=== PATIENT | male | born 1970 | race American Indian/Alaskan Native ===

== ENCOUNTER 2020-11-02 04:41 | Inpatient (IN) | payer MEDICARE ==
[2020-11-02] MEDS ORDERED: ONDANSETRON 4 MG/2 ML INJ IV ONE (05:17)
[2020-11-02] MEDS ORDERED: INSULIN REGULAR, HUMAN 100 UNITS/1 ML IV ONE (05:17)
[2020-11-02] MEDS ORDERED: SODIUM CHLORIDE 0.9% 1000 ML 1,000 ML IV ONE ×2 (05:17→06:24)
[2020-11-02 05:48] LABS: Mean Corpuscular HGB Conc 30 % (32-34); Mean Corpuscular Volume 99 fl (84-94); Platelet Count 225 K/mm3 (140-440); Red Blood Count 4.73 M/mm3 (3.65-5.03); Red Cell Distribution Width 16.1 % (13.2-15.2)
[2020-11-02 05:50] LABS: Basophils % (Auto) 0.3 % (0.0-1.8); Hematocrit 46.7 % (35.5-45.6); Lymphocytes # (Auto) 0.6 K/mm3 (1.2-5.4); Monocytes # (Auto) 0.5 K/mm3 (0.0-0.8); Monocytes % (Auto) 3.9 % (0.0-7.3)
[2020-11-02 06:11] LABS: Bilirubin,Direct 0.2 mg/dL (0-0.2); Calcium 9.3 mg/dL (8.4-10.2)
[2020-11-02] MEDS ORDERED: DEXTROSE 50% IN WATER (25GM) 50 ML SYRINGE IV PRN (06:24)
[2020-11-02] MEDS ORDERED: INSULIN REGULAR, HUMAN 100 UNITS in SODIUM CHLORIDE 0.9% 99 ML IV SCH (07:00)
[2020-11-02 07:26] LABS: INR 1.21 (0.87-1.13); Partial Thromboplastin Time 24.3 Sec. (24.2-36.6)
--- NOTE | 2020-11-02 07:27 | Emergency Department Report ---
ED General Adult HPI - General Chief complaint: Hyperglycemia Stated complaint: HIGH BLOOD SUGAR Time Seen by Provider: 11/02/20 05:17 Source: patient, EMS Mode of arrival: Stretcher Limitations: No Limitations - History of Present Illness Initial comments: This is a 50-year-old type I diabetic who is giving limited history at this time. He is obviously in DKA and probably to some degree encephalopathic. He has Kussmaul respirations. He is able to tell me his name and the year. He seems to be saying that he has not had any insulin at least since Tuesday. He states he is from [place]. I do not know if he was registered correctly. However, he seems to be indicating that he has been to this hospital before and I do not find previous medical records. He also seems to be stating that he is not homeless and lives with family. Other circumstances of his illness/condition are difficult to ascertain at this point. -: Gradual, days(s) Severity scale (0 -10): 0 Quality: other (Not actively complaining of pain at the time of my encounter) Associated Symptoms: other (Unknown) Treatments Prior to Arrival: none - Related Data Home Medications Medication Instructions Recorded Confirmed Last Taken Gabapentin [Neurontin] 400 mg PO Q8HR 11/02/20 11/02/20 Unknown Insulin Glargine [Lantus VIAL] 0 unit SQ ACHS 11/02/20 11/02/20 Unknown Metformin HCl [Metformin HCl ER] 500 mg PO QDAY 11/02/20 11/02/20 Unknown Pioglitazone HCl [Actos] 45 mg PO QDAY 11/02/20 11/02/20 Unknown traMADoL [Ultram] 50 mg PO Q6HR PRN 11/02/20 11/02/20 Unknown Allergies Allergy/AdvReac Type Severity Reaction Status Date / Time No Known Allergies Allergy Unverified 11/02/20 04:57 ED Review of Systems ROS: Stated complaint: HIGH BLOOD SUGAR Other details as noted in HPI Comment: Unobtainable due to pts medical conditions ED Past Medical Hx - Past Medical History Previous Medical History?: Yes Hx Diabetes: Yes - Surgical History Past Surgical History?: Yes Additional Surgical History: FOOT SURGERY - Social History Smoking Status: Current Every Day Smoker Substance Use Type: None - Medications Home Medications: Home Medications Medication Instructions Recorded Confirmed Last Taken Type Gabapentin [Neurontin] 400 mg PO Q8HR 11/02/20 11/02/20 Unknown History Insulin Glargine [Lantus VIAL] 0 unit SQ ACHS 11/02/20 11/02/20 Unknown History Metformin HCl [Metformin HCl ER] 500 mg PO QDAY 11/02/20 11/02/20 Unknown History Pioglitazone HCl [Actos] 45 mg PO QDAY 11/02/20 11/02/20 Unknown History traMADoL [Ultram] 50 mg PO Q6HR PRN 11/02/20 11/02/20 Unknown History ED Physical Exam - General Limitations: No Limitations General appearance: lethargic, other (Kussmaul respirations) - Head Head exam: Present: atraumatic, normocephalic - Eye Eye exam: Present: normal appearance. Absent: scleral icterus - ENT ENT exam: Present: mucous membranes dry - Neck Neck exam: Present: normal inspection. Absent: tenderness, meningismus - Respiratory Respiratory exam: Present: normal lung sounds bilaterally. Absent: respiratory distress - Cardiovascular Cardiovascular Exam: Present: tachycardia. Absent: systolic murmur, diastolic murmur, rubs, gallop - GI/Abdominal GI/Abdominal exam: Present: soft, normal bowel sounds. Absent: distended, te nderness, guarding, rebound, rigid - Rectal Rectal exam: Present: deferred - Extremities Exam Extremities exam: Present: normal inspection - Back Exam Back exam: Present: normal inspection - Neurological Exam Neurological exam: Present: altered - Psychiatric Psychiatric exam: Present: normal mood, flat affect - Skin Skin exam: Present: warm, dry, intact, normal color. Absent: rash ED Course Vital Signs 11/02/20 11/02/20 11/02/20 04:50 06:16 06:27 Temperature 97.5 F L Pulse Rate 120 H Respiratory 18 33 H Rate Blood Pressure Blood Pressure 100/60 [Left] O2 Sat by Pulse 100 83 L 100 Oximetry 11/02/20 11/02/20 11/02/20 06:31 06:33 07:15 Temperature Pulse Rate 111 H 113 H 111 H Respiratory 22 33 H 19 Rate Blood Pressure 107/67 124/54 Blood Pressure 107/67 [Left] O2 Sat by Pulse 100 100 Oximetry 11/02/20 11/02/20 11/02/20 07:30 07:45 08:01 Temperature Pulse Rate 115 H 110 H 109 H Respiratory 23 18 22 Rate Blood Pressure 128/58 107/68 107/68 Blood Pressure [Left] O2 Sat by Pulse 100 100 100 Oximetry 11/02/20 11/02/20 11/02/20 08:15 08:31 09:01 Temperature Pulse Rate 102 H 115 H 109 H Respiratory 15 21 15 Rate Blood Pressure 124/73 107/67 123/75 Blood Pressure [Left] O2 Sat by Pulse 100 100 Oximetry - Reevaluation(s) Reevaluation #1: IV fluids, insulin drip, admit to ICU. 11/02/20 08:18 Reevaluation #2: Empiric antibiotics for possible sepsis are ordered. The patient has been seen by Dr. Sullivan in the emergency department and has been admitted to the intensive care unit. 11/02/20 08:22 Reevaluation #3: EKG and chest x-ray are yet pending. Nurse informed. 11/02/20 08:23 Reevaluation #4: Patient has been entered as a new patient with no prior electronic medical records. I am having them check to find out if this is accurate. He has a creatinine of 3.8. I do not know his baseline. We will obtain a nephrology consult. 11/02/20 08:24 Reevaluation #5: Discussed with Dr. Ma. He will be seeing the patient in the emergency department I presume. 11/02/20 08:38 11/02/20 09:16 Improving anion gap noted. Patient already admitted by hospitalist to the ICU. ED Medical Decision Making - Lab Data Result diagrams: 11/02/20 05:21 11/02/20 08:27 Laboratory Results - last 24 hr 11/02/20 11/02/20 11/02/20 05:21 05:21 05:21 WBC 12.9 H RBC 4.73 Hgb 14.0 Hct 46.7 H MCV 99 H MCH 30 MCHC 30 L RDW 16.1 H Plt Count 225 Lymph % (Auto) 5.0 L [place] % (Auto) 3.9 Eos % (Auto) 0.0 Baso % (Auto) 0.3 Lymph # (Auto) 0.6 L [place] # (Auto) 0.5 Eos # (Auto) 0.0 Baso # (Auto) 0.0 Seg Neutrophils % Invasive Cardiologist Seg Neutrophils # 11.7 H PT INR APTT VBG pH 7.140 L* Sodium 137 Potassium 6.1 H* Chloride 78.1 L Carbon Dioxide 5 L* Anion Gap 60 BUN 74 H Creatinine 3.8 H Estimated GFR 17 BUN/Creatinine Ratio 19 Glucose 991 H* Lactic Acid Calcium 9.3 Total Bilirubin 0.40 Direct Bilirubin 0.2 Indirect Bilirubin 0.2 AST 10 ALT 13 Alkaline Phosphatase 139 H Total Protein 7.3 Albumin 4.0 Albumin/Globulin Ratio 1.2 11/02/20 11/02/20 06:50 06:50 WBC RBC Hgb Hct MCV MCH MCHC RDW Plt Count Lymph % (Auto) [place] % (Auto) Eos % (Auto) Baso % (Auto) Lymph # (Auto) [place] # (Auto) Eos # (Auto) Baso # (Auto) Seg Neutrophils % Seg Neutrophils # PT 15.1 H INR 1.21 H APTT 24.3 VBG pH Sodium Potassium Chloride Carbon Dioxide Anion Gap BUN Creatinine Estimated GFR BUN/Creatinine Ratio Glucose Lactic Acid 3.30 H* Calcium Total Bilirubin Direct Bilirubin Indirect Bilirubin AST ALT Alkaline Phosphatase Total Protein Albumin Albumin/Globulin Ratio Laboratory Results - last 24 hr 11/02/20 11/02/20 11/02/20 05:21 05:21 05:21 WBC 12.9 H RBC 4.73 Hgb 14.0 Hct 46.7 H MCV 99 H MCH 30 MCHC 30 L RDW 16.1 H Plt Count 225 Lymph % (Auto) 5.0 L [place] % (Auto) 3.9 Eos % (Auto) 0.0 Baso % (Auto) 0.3 Lymph # (Auto) 0.6 L [place] # (Auto) 0.5 Eos # (Auto) 0.0 Baso # (Auto) 0.0 Seg Neutrophils % Invasive Cardiologist Seg Neutrophils # 11.7 H PT INR APTT VBG pH 7.140 L* Sodium 137 Potassium 6.1 H* Chloride 78.1 L Carbon Dioxide 5 L* Anion Gap 60 BUN 74 H Creatinine 3.8 H Estimated GFR 17 BUN/Creatinine Ratio 19 Glucose 991 H* Lactic Acid Calcium 9.3 Phosphorus Magnesium Total Bilirubin 0.40 Direct Bilirubin 0.2 Indirect Bilirubin 0.2 AST 10 ALT 13 Alkaline Phosphatase 139 H Total Creatine Kinase CK-MB (CK-2) CK-MB (CK-2) Rel Index Troponin T NT-Pro-B Natriuret Pep Total Protein 7.3 Albumin 4.0 Albumin/Globulin Ratio 1.2 11/02/20 11/02/20 11/02/20 06:50 06:50 06:50 WBC RBC Hgb Hct MCV MCH MCHC RDW Plt Count Lymph % (Auto) [place] % (Auto) Eos % (Auto) Baso % (Auto) Lymph # (Auto) [place] # (Auto) Eos # (Auto) Baso # (Auto) Seg Neutrophils % Seg Neutrophils # PT 15.1 H INR 1.21 H APTT 24.3 VBG pH Sodium 140 Potassium 4.4 D Chloride 86.5 L Carbon Dioxide 4 L* Anion Gap 54 BUN 74 H Creatinine 3.8 H Estimated GFR 17 BUN/Creatinine Ratio 19 Glucose 884 H* Lactic Acid Calcium 8.1 L Phosphorus 11.40 H Magnesium 3.30 H Total Bilirubin Direct Bilirubin Indirect Bilirubin AST ALT Alkaline Phosphatase Total Creatine Kinase CK-MB (CK-2) CK-MB (CK-2) Rel Index Troponin T NT-Pro-B Natriuret Pep Total Protein Albumin Albumin/Globulin Ratio 11/02/20 11/02/20 06:50 06:50 WBC RBC Hgb Hct MCV MCH MCHC RDW Plt Count Lymph % (Auto) [place] % (Auto) Eos % (Auto) Baso % (Auto) Lymph # (Auto) [place] # (Auto) Eos # (Auto) Baso # (Auto) Seg Neutrophils % Seg Neutrophils # PT INR APTT VBG pH Sodium Potassium Chloride Carbon Dioxide Anion Gap BUN Creatinine Estimated GFR BUN/Creatinine Ratio Glucose Lactic Acid 3.30 H* Calcium Phosphorus Magnesium 3.30 H Total Bilirubin Direct Bilirubin Indirect Bilirubin AST ALT Alkaline Phosphatase Total Creatine Kinase 104 CK-MB (CK-2) 2.8 CK-MB (CK-2) Rel Index 2.6 Troponin T 0.013 NT-Pro-B Natriuret Pep 116.9 Total Protein Albumin Albumin/Globulin Ratio Laboratory Results - last 24 hr 11/02/20 11/02/20 11/02/20 05:21 05:21 05:21 WBC 12.9 H RBC 4.73 Hgb 14.0 Hct 46.7 H MCV 99 H MCH 30 MCHC 30 L RDW 16.1 H Plt Count 225 Lymph % (Auto) 5.0 L [place] % (Auto) 3.9 Eos % (Auto) 0.0 Baso % (Auto) 0.3 Lymph # (Auto) 0.6 L [place] # (Auto) 0.5 Eos # (Auto) 0.0 Baso # (Auto) 0.0 Seg Neutrophils % Invasive Cardiologist Seg Neutrophils # 11.7 H PT INR APTT VBG pH 7.140 L* Sodium 137 Potassium 6.1 H* Chloride 78.1 L Carbon Dioxide 5 L* Anion Gap 60 BUN 74 H Creatinine 3.8 H Estimated GFR 17 BUN/Creatinine Ratio 19 Glucose 991 H* Lactic Acid Calcium 9.3 Phosphorus Magnesium Total Bilirubin 0.40 Direct Bilirubin 0.2 Indirect Bilirubin 0.2 AST 10 ALT 13 Alkaline Phosphatase 139 H Total Creatine Kinase CK-MB (CK-2) CK-MB (CK-2) Rel Index Troponin T NT-Pro-B Natriuret Pep Total Protein 7.3 Albumin 4.0 Albumin/Globulin Ratio 1.2 11/02/20 11/02/20 11/02/20 06:50 06:50 06:50 WBC RBC Hgb Hct MCV MCH MCHC RDW Plt Count Lymph % (Auto) [place] % (Auto) Eos % (Auto) Baso % (Auto) Lymph # (Auto) [place] # (Auto) Eos # (Auto) Baso # (Auto) Seg Neutrophils % Seg Neutrophils # PT 15.1 H INR 1.21 H APTT 24.3 VBG pH Sodium 140 Potassium 4.4 D Chloride 86.5 L Carbon Dioxide 4 L* Anion Gap 54 BUN 74 H Creatinine 3.8 H Estimated GFR 17 BUN/Creatinine Ratio 19 Glucose 884 H* Lactic Acid Calcium 8.1 L Phosphorus 11.40 H Magnesium 3.30 H Total Bilirubin Direct Bilirubin Indirect Bilirubin AST ALT Alkaline Phosphatase Total Creatine Kinase CK-MB (CK-2) CK-MB (CK-2) Rel Index Troponin T NT-Pro-B Natriuret Pep Total Protein Albumin Albumin/Globulin Ratio 11/02/20 11/02/20 11/02/20 06:50 06:50 08:27 WBC RBC Hgb Hct MCV MCH MCHC RDW Plt Count Lymph % (Auto) [place] % (Auto) Eos % (Auto) Baso % (Auto) Lymph # (Auto) [place] # (Auto) Eos # (Auto) Baso # (Auto) Seg Neutrophils % Seg Neutrophils # PT INR APTT VBG pH Sodium 140 Potassium 4.5 Chloride 89.4 L Carbon Dioxide 7 L* Anion Gap 48 BUN 75 H Creatinine 3.7 H Estimated GFR 21 BUN/Creatinine Ratio 20 Glucose 789 H* Lactic Acid 3.30 H* Calcium 7.9 L Phosphorus Magnesium 3.30 H Total Bilirubin Direct Bilirubin Indirect Bilirubin AST ALT Alkaline Phosphatase Total Creatine Kinase 104 CK-MB (CK-2) 2.8 CK-MB (CK-2) Rel Index 2.6 Troponin T 0.013 NT-Pro-B Natriuret Pep 116.9 Total Protein Albumin Albumin/Globulin Ratio 11/02/20 08:27 WBC RBC Hgb Hct MCV MCH MCHC RDW Plt Count Lymph % (Auto) [place] % (Auto) Eos % (Auto) Baso % (Auto) Lymph # (Auto) [place] # (Auto) Eos # (Auto) Baso # (Auto) Seg Neutrophils % Seg Neutrophils # PT INR APTT VBG pH Sodium Potassium Chloride Carbon Dioxide Anion Gap BUN Creatinine Estimated GFR BUN/Creatinine Ratio Glucose Lactic Acid 1.70 Calcium Phosphorus Magnesium Total Bilirubin Direct Bilirubin Indirect Bilirubin AST ALT Alkaline Phosphatase Total Creatine Kinase CK-MB (CK-2) CK-MB (CK-2) Rel Index Troponin T NT-Pro-B Natriuret Pep Total Protein Albumin Albumin/Globulin Ratio - EKG Data -: EKG Interpreted by Al EKG shows normal: sinus rhythm, axis, intervals, QRS complexes, ST-T waves Rate: tachycardia - EKG Data Interpretation: nonspecific ST-T wave alfa Critical Care Time: Yes Critical care time in (mins) excluding proc time.: 90 Critical care attestation.: If time is entered above; I have spent that time in minutes in the direct care of this critically ill patient, excluding procedure time. ED Disposition Clinical Impression: Metabolic encephalopathy, Lactic acidosis, Acute renal injury, Hyperphosphatemia DKA, type 1 Qualifiers: Diabetes mellitus complication detail: with coma Qualified Code(s): E10.11 - Type 1 diabetes mellitus with ketoacidosis with coma Chronic renal insufficiency Qualifiers: Chronic kidney disease stage: unspecified stage Qualified Code(s): N18.9 - Chronic kidney disease, unspecified Disposition: OP ADMIT IP TO THIS HOSP Is pt being admited?: Yes Does the pt Need Aspirin: Yes Condition: Stable Instructions: Diabetes Mellitus Type 2 in Adults (ED) Referrals: PRIMARY CARE, [Primary Care Provider] - 3-5 Days Time of Disposition: 09:17
[2020-11-02 07:31] LABS: Calcium 8.1 mg/dL (8.4-10.2)
[2020-11-02 07:33] LABS: Creatine Kinase MB 2.8 ng/mL (0.0-4.0)
[2020-11-02] MEDS ORDERED: CEFEPIME/NS 1 GM/100 ML 1 GM/100 ML BAG IV ONE (08:21)
[2020-11-02 08:58] LABS: Calcium 7.9 mg/dL (8.4-10.2)
[2020-11-02] MEDS ORDERED: VANCOMYCIN PHARMACY TO DOSE IV SCH (09:00)
--- NOTE | 2020-11-02 09:10 | XRay Report ---
CHEST 1 VIEW 11/02/2020 8:03 AM INDICATION / CLINICAL INFORMATION: hypertension. COMPARISON: None available. FINDINGS: SUPPORT DEVICES: None. HEART / MEDIASTINUM: No significant abnormality. LUNGS / PLEURA: There are generalized bilateral interstitial opacities, most notable along the left l tonya base. No dense area of consolidation. No significant pleural effusion. No pneumothorax. ADDITIONAL FINDINGS: No significant additional findings. IMPRESSION: Nonspecific bilateral interstitial opacities could represent edema or other chronic interstitial lung disease. Please correlate with the clinical findings. Signer Name: Homar Tello MD Signed: 11/02/2020 9:06 AM Workstation Name: [id number]
[2020-11-02] MEDS ORDERED: ASPIRIN 81 MG TAB CHEW PO ONE (09:17)
[2020-11-02] MEDS ORDERED: VANCOMYCIN 1,500 MG in SODIUM CHLORIDE 0.9% 500 ML 500 ML IV ONE (09:30)
--- NOTE | 2020-11-02 10:45 | History and Physical Report ---
History of Present Illness Date of examination: 11/02/20 Date of admission: 11/02/20 Chief complaint: AMS, n/v History of present illness: This is a 50-year-old type I diabetic who is giving limited history at this time. He is obviously in DKA and probably to some degree encephalopathic. He has Kussmaul respirations. He is able to tell me his name and the year. He seems to be saying that he has not had any insulin at least since Tuesday. He states he is from [place]. I do not know if he was registered correctly. However, he seems to be indicating that he has been to this hospital before and I do not find previous medical records. He also seems to be stating that he is not homeless and lives with family. Other circumstances of his illness/conditio n are difficult to ascertain at this point. Past Medical Hx - Past Medical History Previous Medical History?: Yes Hx Diabetes: Yes - Surgical History Past Surgical History?: Yes Additional Surgical History: FOOT SURGERY - Social History Smoking Status: Current Every Day Smoker Substance Use Type: None - Family History Significant for hypertension and diabetes Review of System: Unable to obtain as patient with altered mental status Medications and Allergies Allergies Allergy/AdvReac Type Severity Reaction Status Date / Time No Known Allergies Allergy Unverified 11/02/20 04:57 Home Medications Medication Instructions Recorded Confirmed Last Taken Type Gabapentin 400 mg PO Q8HR 11/02/20 11/02/20 Unknown History Metformin HCl [Metformin HCl ER] 500 mg PO QDAY 11/02/20 11/02/20 Unknown History Pioglitazone HCl [Actos] 45 mg PO QDAY 11/02/20 11/02/20 Unknown History Insulin Glargine [Lantus VIAL] 15 units SUB-Q QHS 30 Days 11/04/20 Unknown Rx Insulin Regular, Human [HumuLIN R] 0 units SUB-Q ACHS 30 Days units 11/04/20 U nknown Rx levoFLOXacin [Levaquin] 750 mg PO QDAY #4 tablet 11/04/20 Unknown Rx Active Meds: Active Medications Dextrose (Dextrose 50% In Water (25gm) 50 Ml Syringe) 0 ml IV Q30MIN PRN; Protocol PRN Reason: Hypoglycemia Insulin Human Regular 100 (units/ Sodium Chloride) 100 mls @ 1 mls/hr IV TITR ALEXANDRA; Protocol Last Titration: 11/02/20 10:20 Dose: 8 units/hr, 8 mls/hr Documented by: Vancomycin HCl 1,500 mg/ (Sodium Chloride) 530 mls @ 333.333 mls/hr IV ONCE ONE Stop: 11/02/20 11:05 Last Admin: 11/02/20 10:24 Dose: 333.333 mls/hr Documented by: Exam - Constitutional Vitals: Temp Pulse Resp BP Pulse Ox 97.5 F L 109 H 15 123/75 100 11/02/20 04:50 11/02/20 09:01 11/02/20 09:01 11/02/20 09:01 11/02/20 09:01 HEART Score - HEART Score Troponin: Troponin T 0.013 ng/mL (0.00-0.029) 11/02/20 06:50 Results - Labs CBC & Chem 7: 11/03/20 10:04 11/04/20 05:35 Labs: Abnormal lab results 11/02/20 11/02/20 11/02/20 Range/Units 05:11 05:21 05:21 WBC 12.9 H (4.5-11.0) K/mm3 Hct 46.7 H (35.5-45.6) % MCV 99 H (84-94) fl MCHC 30 L (32-34) % RDW 16.1 H (13.2-15.2) % Lymph % (Auto) 5.0 L (13.4-35.0) % Lymph # (Auto) 0.6 L (1.2-5.4) K/mm3 Seg Neutrophils # 11.7 H (1.8-7.7) K/mm3 PT (12.2-14.9) Sec. INR (0.87-1.13) VBG pH (7.320-7.420) Potassium 6.1 H* (3.6-5.0) mmol/L Chloride 78.1 L (98-107) mmol/L Carbon Dioxide 5 L* (22-30) mmol/L BUN 74 H (9-20) mg/dL Creatinine 3.8 H (0.8-1.3) mg/dL Glucose 991 H* (75-100) mg/dL POC Glucose > 600 H (70-105) mg/dL Lactic Acid (0.7-2.0) mmol/L Calcium (8.4-10.2) mg/dL Phosphorus (2.5-4.5) mg/dL Magnesium (1.7-2.3) mg/dL Alkaline Phosphatase 139 H (35-129) units/L 11/02/20 11/02/20 11/02/20 Range/Units 05:21 06:50 06:50 WBC (4.5-11.0) K/mm3 Hct (35.5-45.6) % MCV (84-94) fl MCHC (32-34) % RDW (13.2-15.2) % Lymph % (Auto) (13.4-35.0) % Lymph # (Auto) (1.2-5.4) K/mm3 Seg Neutrophils # (1.8-7.7) K/mm3 PT (12.2-14.9) Sec. INR (0.87-1.13) VBG pH 7.140 L* (7.320-7.420) Potassium (3.6-5.0) mmol/L Chloride 86.5 L (98-107) mmol/L Carbon Dioxide 4 L* (22-30) mmol/L BUN 74 H (9-20) mg/dL Creatinine 3.8 H (0.8-1.3) mg/dL Glucose 884 H* (75-100) mg/dL POC Glucose (70-105) mg/dL Lactic Acid (0.7-2.0) mmol/L Calcium 8.1 L (8.4-10.2) mg/dL Phosphorus 11.40 H (2.5-4.5) mg/dL Magnesium 3.30 H (1.7-2.3) mg/dL Alkaline Phosphatase (35-129) units/L 11/02/20 11/02/20 11/02/20 Range/Units 06:50 06:50 06:50 WBC (4.5-11.0) K/mm3 Hct (35.5-45.6) % MCV (84-94) fl MCHC (32-34) % RDW (13.2-15.2) % Lymph % (Auto) (13.4-35.0) % Lymph # (Auto) (1.2-5.4) K/mm3 Seg Neutrophils # (1.8-7.7) K/mm3 PT 15.1 H (12.2-14.9) Sec. INR 1.21 H (0.87-1.13) VBG pH (7.320-7.420) Potassium (3.6-5.0) mmol/L Chloride (98-107) mmol/L Carbon Dioxide (22-30) mmol/L BUN (9-20) mg/dL Creatinine (0.8-1.3) mg/dL Glucose (75-100) mg/dL POC Glucose (70-105) mg/dL Lactic Acid 3.30 H* (0.7-2.0) mmol/L Calcium (8.4-10.2) mg/dL Phosphorus (2.5-4.5) mg/dL Magnesium 3.30 H (1.7-2.3) mg/dL Alkaline Phosphatase (35-129) units/L 11/02/20 Range/Units 08:27 WBC (4.5-11.0) K/mm3 Hct (35.5-45.6) % MCV (84-94) fl MCHC (32-34) % RDW (13.2-15.2) % Lymph % (Auto) (13.4-35.0) % Lymph # (Auto) (1.2-5.4) K/mm3 Seg Neutrophils # (1.8-7.7) K/mm3 PT (12.2-14.9) Sec. INR (0.87-1.13) VBG pH (7.320-7.420) Potassium (3.6-5.0) mmol/L Chloride 89.4 L (98-107) mmol/L Carbon Dioxide 7 L* (22-30) mmol/L BUN 75 H (9-20) mg/dL Creatinine 3.7 H (0.8-1.3) mg/dL Glucose 789 H* (75-100) mg/dL POC Glucose (70-105) mg/dL Lactic Acid (0.7-2.0) mmol/L Calcium 7.9 L (8.4-10.2) mg/dL Phosphorus (2.5-4.5) mg/dL Magnesium (1.7-2.3) mg/dL Alkaline Phosphatase (35-129) units/L Assessment and Plan Acute metabolic encephalopathy -Likely due to declining renal function and hyperglycemia with a DKA -Admit to ICU, obtain CT head, continue insulin drip, IV fluid hydration and n.p.o. for now DKA with type 2 diabetes mellitus - We will admit the patient to ICU, placed on DKA protocol - We'll continue insulin drip and monitor blood glucose every hour - We will continue IV fluid hydration with normal saline - Will change to D5 normal saline once blood glucose reaches below 250 - We'll repeat BMP per DKA protocol till anion gap closes - We will replace potassium and magnesium as needed - We'll keep the patient nothing by mouth for now, will place on ADA diet when anion gap closes FINN, due to vasomotor nephropathy -Cannot rule out underlying CKD with diabetic nephropathy -Continue aggressive IV fluid hydration, consult nephrology SIRS with leukocytosis, elevated lactic acid and tachycardia -We will get blood culture and urine culture, chest x-ray showed bilateral nonspecific opacities -We will cover with antibiotic antibiotics till culture studies are negative -Ordered for COVID-19 type 2 diabetes mellitus, continue insulin drip for now, monitor A1c Diabetic neuropathy -Patient takes gabapentin at home, continue supportive care DVT prophylaxis, Lovenox The high probability of a clinically significant, sudden or life threatening deterioration of 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 The aggregate critical care time was [42] minutes. This time is in addition to time spent performing reported procedures but includes the following: [x] Data Review and interpretation [x] Patient assessment and monitoring of vital signs [x] Documentation [x] Medication orders and management
--- NOTE | 2020-11-02 10:57 | Consultation ---
History of Present Illness - Reason for Consult acute renal failure, hyperkalemia, metabolic acidosis - History of Present Illness 50-year-old -M[place]ese male with a past medical history of diabetes who presents to emergency department with symptoms of altered mentation, weakness, lethargy, nausea and vomiting in the setting of severe DKA. Patient is not a good historian at this time as he remains very lethargic. He answers questions very slowly and the majority of history is obtained by discussion with the emergency room physician/staff, as well as review of the notes. It seems that he may have run out of his insulin over the past week and has come in at this time significantly encephalopathic secondary to the aforementioned diabetic ketoacidosis which is evident on his admission laboratory studies. Also was noted to be in acute renal failure in the setting of DKA for which nephrology is being consulted at this time. I see no other documentation or records of this patient in our hospital. No previous history of renal disease documented. Patient has received 2 L of normal saline bolus per ER nurse. Insulin drip is running at this time. Past History Past Medical History: diabetes Past Surgical History: Other (Unable to obtain ) Social history: other (Unable to obtain) Family history: other (Unable to obtain) Medications and Allergies Allergies Allergy/AdvReac Type Severity Reaction Status Date / Time No Known Allergies Allergy Unverified 11/02/20 04:57 Home Medications Medication Instructions Recorded Confirmed Last Taken Type Gabapentin [Neurontin] 400 mg PO Q8HR 11/02/20 11/02/20 Unknown History Insulin Glargine [Lantus VIAL] 0 unit SQ ACHS 11/02/20 11/02/20 Unknown History Metformin HCl [Metformin HCl ER] 500 mg PO QDAY 11/02/20 11/02/20 Unknown History Pioglitazone HCl [Actos] 45 mg PO QDAY 11/02/20 11/02/20 Unknown History traMADoL [Ultram] 50 mg PO Q6HR PRN 11/02/20 11/02/20 Unknown History Active Meds: Active Medications Dextrose (Dextrose 50% In Water (25gm) 50 Ml Syringe) 0 ml IV Q30MIN PRN; Protocol PRN Reason: Hypoglycemia Insulin Human Regular 100 (units/ Sodium Chloride) 100 mls @ 1 mls/hr IV TITR ALEXANDRA; Protocol Last Titration: 11/02/20 10:20 Dose: 8 units/hr, 8 mls/hr Documented by: Vancomycin HCl 1,500 mg/ (Sodium Chloride) 530 mls @ 333.333 mls/hr IV ONCE ONE Stop: 11/02/20 11:05 Last Admin: 11/02/20 10:24 Dose: 333.333 mls/hr Documented by: Review of Systems ROS unobtainable: due to mental status Exam - Vital Signs Vital signs: Vital Signs Temp Pulse Resp BP Pulse Ox 97.5 F L 120 H 18 100/60 100 11/02/20 04:50 11/02/20 04:50 11/02/20 04:50 11/02/20 04:50 11/02/20 04:50 - General Appearance General appearance: appears stated age EENT: ATNC Neck: Present: neck supple Respiratory: Clear to Ascultation, Normal Exam Heart: regular, S1S2 Gastrointestinal: Present: normal Integumentary: no rash Neurologic: confused, other (Lethargic) Musculoskeletal: Present: deferred Results - Lab Results 11/02/20 05:21 11/02/20 08:27 Most recent lab results Calcium 7.9 mg/dL (8.4-10.2) L 11/02/20 08:27 Phosphorus 11.40 mg/dL (2.5-4.5) H 11/02/20 06:50 Magnesium 3.30 mg/dL (1.7-2.3) H 11/02/20 06:50 Magnesium 3.30 mg/dL (1.7-2.3) H 11/02/20 06:50 Assessment and Plan - Patient Problems (1) Acute renal injury Current Visit: Yes Status: Acute Plan to address problem: Likely prerenal in the setting of severe diabetic ketoacidosis. Agree with current management. We will add normal saline to be running at 125 cc an hour. Avoid nephrotoxins maintain mean arterial pressure above 65 mmHg. We will add urine analysis along with urine electrolytes for further evaluation. We will also add a renal ultrasound at this time. (2) Diabetes with ketoacidosis Current Visit: Yes Status: Acute Plan to address problem: Management of DKA per primary attending. We will add normal saline to be running at 125 cc an hour. (3) Metabolic encephalopathy Current Visit: Yes Status: Acute Plan to address problem: In the setting of severe diabetic ketoacidosis. Patient is able to answer questions very slowly. He was able to respond to verbal stimuli to his name. We will continue to monitor closely but anticipate that with continued improvement and treatment of his diabetic ketoacidosis that his mentation should start to improve. We will continue to monitor closely. (4) Metabolic acidosis due to diabetes mellitus Current Visit: Yes Status: Acute Plan to address problem: With continued insulin gtt along with addition of normal saline at 125 cc an hour, anticipate improvement in acidosis. We will continue to monitor closely.
[2020-11-02] MEDS ORDERED: SODIUM CHLORIDE 0.9% 1000 ML 1,000 ML IV SCH (11:00)
[2020-11-02 11:33] LABS: Calcium 8.2 mg/dL (8.4-10.2)
--- NOTE | 2020-11-02 12:55 | Cat Scan Report ---
CT head without contrast INDICATION : MAIN. Acute altered mental status TECHNIQUE: Axial imaging performed from the skull apex through the skull base without the use of con trast. All CT scans at this location are performed using CT dose reduction for ALARA by means of aut omated exposure control. COMPARISON: None FINDINGS: Parenchyma: No acute intracranial hemorrhage or parenchymal abnormality. Ventricles: Ventricles are normal in size and appear symmetric. Soft tissues: There is mild soft tissue swelling/hematoma along the right posterior scalp. Bones: No acute osseous abnormality. An old right lamina papyracea fracture is present. Sinuses: There is complete opacification of the right maxillary sinus without mucoperiosteal reactiv e change. Remaining sinuses and mastoid air cells are clear. IMPRESSION: 1. Mild right posterior scalp swelling/hematoma formation. 2. Right maxillary sinusitis. 3. No acute intracranial abnormality. Signer Name: Devante Gutierrez MD Signed: 11/02/2020 12:50 PM Workstation Name: [id number]
[2020-11-02] MEDS: cefTRIAXone/NS 1 GM/50 ML 1 GM/50 ML BAG IV SCH (13:11)
[2020-11-02] MEDS ORDERED: GABAPENTIN 100 MG CAP PO SCH (14:00)
[2020-11-02] MEDS ORDERED: GABAPENTIN 400 MG CAP PO SCH (14:00)
[2020-11-02 15:14] LABS: Calcium 8.1 mg/dL (8.4-10.2)
[2020-11-02 18:36] LABS: Chloride, Urine 16.5 mmolL (110-250)
[2020-11-02 18:44] LABS: Bilirubin,Urine NEG (Negative); Blood,Urine MOD (Negative); Color,Urine Yellow (Yellow); Mucus,Urine FEW /HPF; Urobilinogen,Urine < 2.0 mg/dL (<2.0)
[2020-11-02] MEDS: D5W/0.45% NACL/KCL 20 MEQ 20 MEQ/1,000 ML BAG IV SCH (19:59)
[2020-11-03 00:28] LABS: Calcium 8.8 mg/dL (8.4-10.2)
[2020-11-03] MEDS: cefTRIAXone/NS 1 GM/50 ML 1 GM/50 ML BAG IV SCH (02:15)
[2020-11-03] MEDS: D5W/0.45% NACL/KCL 20 MEQ 20 MEQ/1,000 ML BAG IV SCH (05:10)
[2020-11-03 05:44] LABS: Calcium 8.4 mg/dL (8.4-10.2)
[2020-11-03] MEDS ORDERED: INSULIN GLARGINE 100 UNITS/ML SUB-Q ONE (10:00)
[2020-11-03] MEDS ORDERED: SODIUM CHLORIDE 0.45% 1000 ML 1,000 ML IV SCH (10:00)
[2020-11-03 10:34] LABS: Hematocrit 35.8 % (35.5-45.6); Hemoglobin 12.3 gm/dl (11.8-15.2); Mean Corpuscular HGB Conc 34 % (32-34); Mean Corpuscular Volume 87 fl (84-94); Platelet Count 151 K/mm3 (140-440); Red Cell Distribution Width 14.6 % (13.2-15.2)
[2020-11-03] MEDS: INSULIN REGULAR, HUMAN 100 UNITS/1 ML SUB-Q SCH ×3 (11:08→22:57)
[2020-11-03] MEDS ORDERED: SODIUM CHLORIDE 0.9% 1000 ML 1,000 ML IV SCH (13:01)
--- NOTE | 2020-11-03 13:56 | Consultation ---
History of Present Illness Consult date: 11/03/20 Reason for consult: dyspnea History of present illness: This is a 50-year-old type I diabetic who is giving limited history at this time. He is obviously in DKA and probably to some degree encephalopathic. He has Kussmaul respirations. He said that he has not had any insulin at least since last tuesday prior to admission. He also seems to be stating that he is not homeless and lives with family. Other circumstances of his illness/condition are difficult to ascertain at this point. Patient kind sleepy but able to give little history. Patient has history of smoking 1 pack for 30 years. He says he drinks alcohol. Denies drug abuse. 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 No Known drug allergies. Patient appeared tired. No acute respiratory distress. Patient is on room air. O2 saturation 95%. No Known drug allergies. Patient running low grade temp. Has mild leukocytosis. Chest xray obtained 11/02/20 reported Nonspecific bilateral interstitial opacities could represent edema or other chronic interstitial lung disease. Patient is on Ceftriaxone. Recommend to add zithromax also. Past History Past Medical History: diabetes Past Surgical History: Other (Unable to obtain ) Social history: other (Unable to obtain) Family history: other (Unable to obtain) Medications and Allergies Allergies Allergy/AdvReac Type Severity Reaction Status Date / Time No Known Allergies Allergy Unverified 11/02/20 04:57 Home Medications Medication Instructions Recorded Confirmed Last Taken Type Gabapentin [Neurontin] 400 mg PO Q8HR 11/02/20 11/02/20 Unknown History Insulin Glargine [Lantus VIAL] 0 unit SQ ACHS 11/02/20 11/02/20 Unknown History Metformin HCl [Metformin HCl ER] 500 mg PO QDAY 11/02/20 11/02/20 Unknown History Pioglitazone HCl [Actos] 45 mg PO QDAY 11/02/20 11/02/20 Unknown History traMADoL [Ultram] 50 mg PO Q6HR PRN 11/02/20 11/02/20 Unknown History Active Meds: Active Medications Dextrose (Dextrose 50% In Water (25gm) 50 Ml Syringe) 0 ml IV Q30MIN PRN; Protocol PRN Reason: Hypoglycemia Enoxaparin Sodium (Enoxaparin 40 Mg/0.4 Ml Inj) 40 mg SUB-Q QDAY@2200 ALEX[facility]A; Protocol Ceftriaxone Sodium (Rocephin/Ns 2 Gm/100 Ml) 2 gm in 100 mls @ 200 mls/hr IV Q24H ALEXANDRA; Protocol Sodium Chloride (Nacl 0.9% 1000 Ml) 1,000 mls @ 100 mls/hr IV DIRECT ALEXANDRA Insulin Glargine (Insulin Glargine 100 Units/Ml) 10 units SUB-Q QHS ALEXANDRA Insulin Human Regular (Insulin Regular, Human 100 Units/1 Ml) 0 units SUB-Q ACHS ALEXANDRA; Protocol Last Admin: 11/03/20 11:08 Dose: Not Given Documented by: Review of Systems All systems: negative Physical Examination Vital signs: Vital Signs Temp Pulse Resp BP Pulse Ox 97.5 F L 120 H 18 100/60 100 11/02/20 04:50 11/02/20 04:50 11/02/20 04:50 11/02/20 04:50 11/02/20 04:50 General appearance: no acute distress, lethargic Eyes: non-icteric ENT: oropharynx moist Neck: supple, no JVD Ascultation: Bilateral: diminished breath sounds Cardiovascular: regular rate and rhythm Gastrointestinal: normoactive bowel sounds, soft, non-tender Integumentary: normal Extremities: no cyanosis, no edema Musculoskeletal: no deformities Gait: other (Can not evaluate now) non-focal exam, pupils equal and round depressed Results - Laboratory Findings CBC and BMP: 11/03/20 10:04 11/03/20 05:03 PT/INR, D-dimer PT 15.1 Sec. (12.2-14.9) H 11/02/20 06:50 INR 1.21 (0.87-1.13) H 11/02/20 06:50 Abnormal lab findings: Abnormal Labs 11/02/20 11/02/20 11/02/20 05:11 05:21 05:21 WBC 12.9 H Hct 46.7 H MCV 99 H MCHC 30 L RDW 16.1 H Lymph % (Auto) 5.0 L Lymph # (Auto) 0.6 L Seg Neutrophils # 11.7 H PT INR VBG pH Sodium Potassium 6.1 H* Chloride 78.1 L Carbon Dioxide 5 L* BUN 74 H Creatinine 3.8 H Glucose 991 H* POC Glucose > 600 H Lactic Acid Calcium Phosphorus Magnesium Alkaline Phosphatase 139 H Urine Creatinine Urine Chloride 11/02/20 11/02/20 11/02/20 05:21 06:50 06:50 WBC Hct MCV MCHC RDW Lymph % (Auto) Lymph # (Auto) Seg Neutrophils # PT INR VBG pH 7.140 L* Sodium Potassium Chloride 86.5 L Carbon Dioxide 4 L* BUN 74 H Creatinine 3.8 H Glucose 884 H* POC Glucose Lactic Acid Calcium 8.1 L Phosphorus 11.40 H Magnesium 3.30 H Alkaline Phosphatase Urine Creatinine Urine Chloride 11/02/20 11/02/20 11/02/20 06:50 06:50 06:50 WBC Hct MCV MCHC RDW Lymph % (Auto) Lymph # (Auto) Seg Neutrophils # PT 15.1 H INR 1.21 H VBG pH Sodium Potassium Chloride Carbon Dioxide BUN Creatinine Glucose POC Glucose Lactic Acid 3.30 H* Calcium Phosphorus Magnesium 3.30 H Alkaline Phosphatase Urine Creatinine Urine Chloride 11/02/20 11/02/20 11/02/20 08:27 09:29 10:12 WBC Hct MCV MCHC RDW Lymph % (Auto) Lymph # (Auto) Seg Neutrophils # PT INR VBG pH Sodium Potassium Chloride 89.4 L 93.9 L Carbon Dioxide 7 L* 12 L BUN 75 H 79 H Creatinine 3.7 H 3.6 H Glucose 789 H* 634 H* POC Glucose 544 H Lactic Acid Calcium 7.9 L 8.2 L Phosphorus Magnesium Alkaline Phosphatase Urine Creatinine Urine Chloride 11/02/20 11/02/20 11/02/20 10:23 11:54 12:53 WBC Hct MCV MCHC RDW Lymph % (Auto) Lymph # (Auto) Seg Neutrophils # PT INR VBG pH Sodium Potassium Chloride Carbon Dioxide 16 L BUN 78 H Creatinine 3.0 H Glucose 403 H POC Glucose 516 H 436 H Lactic Acid Calcium 8.0 L Phosphorus Magnesium Alkaline Phosphatase Urine Creatinine Urine Chloride 11/02/20 11/02/20 11/02/20 13:01 13:55 14:32 WBC Hct MCV MCHC RDW Lymph % (Auto) Lymph # (Auto) Seg Neutrophils # PT INR VBG pH Sodium Potassium Chloride Carbon Dioxide 18 L BUN 78 H Creatinine 2.9 H Glucose 336 H POC Glucose 364 H 295 H Lactic Acid Calcium 8.1 L Phosphorus Magnesium Alkaline Phosphatase Urine Creatinine Urine Chloride 11/02/20 11/02/20 11/02/20 15:31 16:45 17:46 WBC Hct MCV MCHC RDW Lymph % (Auto) Lymph # (Auto) Seg Neutrophils # PT INR VBG pH Sodium Potassium Chloride Carbon Dioxide BUN Creatinine Glucose POC Glucose 248 H 216 H 201 H Lactic Acid Calcium Phosphorus Magnesium Alkaline Phosphatase Urine Creatinine Urine Chloride 11/02/20 11/02/20 11/02/20 18:56 21:00 22:16 WBC Hct MCV MCHC RDW Lymph % (Auto) Lymph # (Auto) Seg Neutrophils # PT INR VBG pH Sodium Potassium Chloride Carbon Dioxide BUN Creatinine Glucose POC Glucose 133 H 178 H 232 H Lactic Acid Calcium Phosphorus Magnesium Alkaline Phosphatase Urine Creatinine Urine Chloride 11/02/20 11/02/20 11/02/20 23:27 23:41 Unknown WBC Hct MCV MCHC RDW Lymph % (Auto) Lymph # (Auto) Seg Neutrophils # PT INR VBG pH Sodium 152 H D Potassium Chloride 113.3 H Carbon Dioxide BUN 62 H Creatinine 2.0 H Glucose 160 H POC Glucose 175 H Lactic Acid Calcium Phosphorus Magnesium Alkaline Phosphatase Urine Creatinine 125.0 H Urine Chloride 16.5 L 11/03/20 11/03/20 11/03/20 01:15 01:59 03:39 WBC Hct MCV MCHC RDW Lymph % (Auto) Lymph # (Auto) Seg Neutrophils # PT INR VBG pH Sodium Potassium Chloride Carbon Dioxide BUN Creatinine Glucose POC Glucose 120 H 160 H 213 H Lactic Acid Calcium Phosphorus Magnesium Alkaline Phosphatase Urine Creatinine Urine Chloride 11/03/20 11/03/20 11/03/20 04:28 05:03 05:27 WBC Hct MCV MCHC RDW Lymph % (Auto) Lymph # (Auto) Seg Neutrophils # PT INR VBG pH Sodium 148 H Potassium Chloride 111.5 H Carbon Dioxide BUN 52 H Creatinine 1.7 H Glucose 204 H POC Glucose 179 H 181 H Lactic Acid Calcium Phosphorus Magnesium Alkaline Phosphatase Urine Creatinine Urine Chloride 11/03/20 11/03/20 11/03/20 06:22 08:27 10:04 WBC 12.7 H Hct MCV MCHC RDW Lymph % (Auto) Lymph # (Auto) Seg Neutrophils # PT INR VBG pH Sodium Potassium Chloride Carbon Dioxide BUN Creatinine Glucose POC Glucose 127 H 113 H Lactic Acid Calcium Phosphorus Magnesium Alkaline Phosphatase Urine Creatinine Urine Chloride - Diagnostic Findings Chest x-ray: report reviewed, image reviewed Additional studies: CHEST 1 VIEW 11/02/2020 8:03 AM INDICATION / CLINICAL INFORMATION: hypertension. COMPARISON: None available. FINDINGS: SUPPORT DEVICES: None. HEART / MEDIASTINUM: No significant abnormality. LUNGS / PLEURA: There are generalized bilateral interstitial opacities, most notable along the left lung base. No dense area of consolidation. No significant pleural effusion. No pneumothorax. ADDITIONAL FINDINGS: No significant additional findings. IMPRESSION: Nonspecific bilateral interstitial opacities could represent edema or other chronic interstitial lung disease. Please correlate with the clinical findings. Assessment and Plan This is a 50-year-old type I diabetic who is giving limited history at this time. He is obviously in DKA and probably to some degree encephalopathic. He has Kussmaul respirations. He said that he has not had any insulin at least since last day Tuesday prior to admission. He also seems to be stating that he is not homeless and lives with family. Other circumstances of his illness/condition are difficult to ascertain at this point. Patient kind sleepy but able to give little history. Patient has history of smoking 1 pack f or 30 years. He says he drinks alcohol. Denies drug abuse. 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 No Known drug allergies. Patient appeared tired. No acute respiratory distress. Patient is on room air. O2 saturation 95%. No Known drug allergies. Patient running low grade temp. Has mild leukocytosis. Chest xray obtained 11/02/20 reported Nonspecific bilateral interstitial opacities could represent edema or other chronic interstitial lung disease. Patient is on Ceftriaxone. Recommend to add zithromax also. - Patient Problems (1) Diabetes with ketoacidosis Current Visit: Yes Status: Acute Plan to address problem: Management as per primary care. (2) Acute renal injury Current Visit: Yes Status: Acute Plan to address problem: Management as per nephrology. (3) Metabolic encephalopathy Current Visit: Yes Status: Acute Plan to address problem: Management as per primary care. (4) Opacities of both lungs present on chest x-ray Current Visit: Yes Status: Acute Plan to address problem: Bilateral interstitial opacities could represent edema or other chronic interstitial lung disease. Patient is on Ceftriaxone. Recommend to add zithromax also.
--- NOTE | 2020-11-03 14:01 | Progress Note ---
Assessment and Plan - Patient Problems (1) Acute renal injury Current Visit: Yes Status: Acute Plan to address problem: Likely prerenal in the setting of severe diabetic ketoacidosis. Agree with current management. Continue current normal saline to be running at 125 cc an hour. Avoid nephrotoxins maintain mean arterial pressure above 65 mmHg. UA and urine electrolytes reviewed, pending renal US. (2) Diabetes with ketoacidosis Current Visit: Yes Status: Acute Plan to address problem: Management of DKA per primary attending. We will add normal saline to be running at 125 cc an hour. (3) Metabolic encephalopathy Current Visit: Yes Status: Acute Plan to address problem: In the setting of severe diabetic ketoacidosis. Patient is able to answer ques tions more clearly this am. Mentation showing improvement since admission. (4) Metabolic acidosis due to diabetes mellitus Current Visit: Yes Status: Acute Plan to address problem: Anion gap has closed at this time and he has been restarted on oral diet. Subjective Date of service: 11/03/20 Interval history: No acute changes. Labs reviewed, renal function improving. Glycemic control improved, started on diet this am. Appetite still remains poor. Objective - Vital Signs Vital signs: Vital Signs - 12hr 11/03/20 11/03/20 11/03/20 02:01 03:00 03:52 Temperature 99.1 F Pulse Rate 113 H 113 H Pulse Rate [ From Monitor] Respiratory 22 19 Rate Blood Pressure 150/84 147/83 O2 Sat by Pulse 98 97 Oximetry 11/03/20 11/03/20 11/03/20 04:00 05:00 06:00 Temperature Pulse Rate 123 H 108 H 108 H Pulse Rate [ 109 H From Monitor] Respiratory 18 18 16 Rate Blood Pressure 134/79 144/81 130/71 O2 Sat by Pulse 98 97 97 Oximetry 11/03/20 11/03/20 11/03/20 07:00 08:00 09:00 Temperature 99.3 F Pulse Rate 106 H 115 H 113 H Pulse Rate [ From Monitor] Respiratory 16 22 18 Rate Blood Pressure 135/70 145/71 144/79 O2 Sat by Pulse 97 99 100 Oximetry 11/03/20 11/03/20 11/03/20 10:00 11:00 12:00 Temperature Pulse Rate 96 H 94 H 106 H Pulse Rate [ 105 H From Monitor] Respiratory 15 15 18 Rate Blood Pressure 149/76 142/78 133/64 O2 Sat by Pulse 96 97 96 Oximetry - General Appearance General appearance: appears stated age EENT: ATNC, PERRL Neck: no JVD, no thyromegaly Respiratory: Present: Clear to Ascultation Cardiology: regular Gastrointestinal: normal, normoactive bowel sounds Integumentary: no rash, warm and dry Neurologic: no focal deficit, alert and oriented x3 Musculoskeletal: deferred Psychiatric: cooperative - Lab 11/03/20 10:04 11/03/20 05:03 Most recent lab results Calcium 8.4 mg/dL (8.4-10.2) 11/03/20 05:03 Phosphorus 11.40 mg/dL (2.5-4.5) H 11/02/20 06:50 Magnesium 3.30 mg/dL (1.7-2.3) H 11/02/20 06:50 Magnesium 3.30 mg/dL (1.7-2.3) H 11/02/20 06:50 Urine Creatinine 125.0 mg/dL (0.1-20.0) H 11/02/20 Unknown Urine Sodium 23 mmol/L 11/02/20 Unknown - Allied health notes Allied health notes reviewed: nursing Medications & Allergies - Medications Allergies/Adverse Reactions: Allergies No Known Allergies Allergy (Unverified 11/02/20 04:57) Home Medications: Home Medications Medication Instructions Recorded Confirmed Last Taken Type Gabapentin [Neurontin] 400 mg PO Q8HR 11/02/20 11/02/20 Unknown History Insulin Glargine [Lantus VIAL] 0 unit SQ ACHS 11/02/20 11/02/20 Unknown History Metformin HCl [Metformin HCl ER] 500 mg PO QDAY 11/02/20 11/02/20 Unknown History Pioglitazone HCl [Actos] 45 mg PO QDAY 11/02/20 11/02/20 Unknown History traMADoL [Ultram] 50 mg PO Q6HR PRN 11/02/20 11/02/20 Unknown History Active Medications: Generic Name Dose Route Start Last Admin Trade Name Freq PRN Reason Stop Dose Admin Dextrose 0 ml 11/02/20 06:24 Dextrose 50% In Water (25gm) 50 Ml Syringe IV Q30MIN PRN Hypoglycemia Protocol Enoxaparin Sodium 40 mg 11/03/20 22:00 Enoxaparin 40 Mg/0.4 Ml Inj SUB-Q QDAY@2200 [facility] Protocol Ceftriaxone Sodium 2 gm in 100 mls @ 200 mls/hr 11/03/20 22:00 Rocephin/Ns 2 Gm/100 Ml IV Q24H [facility] Protocol Sodium Chloride 1,000 mls @ 100 mls/hr 11/03/20 13:01 Nacl 0.9% 1000 Ml IV DIRECT [facility] Insulin Glargine 10 units 11/03/20 22:00 Insulin Glargine 100 Units/Ml SUB-Q QHS [facility] Insulin Human Regular 0 units 11/03/20 11:30 11/03/20 11:08 Insulin Regular, Human 100 Units/1 Ml SUB-Q Not Given ACHS [facility] Protocol
--- NOTE | 2020-11-03 15:32 | Progress Note ---
Assessment and Plan Acute metabolic encephalopathy -Likely due to declining renal function and hyperglycemia with a DKA -Admit to ICU, obtain CT head, continue insulin drip, IV fluid hydration and n.p.o. for now DKA with type 2 diabetes mellitus - We will admit the patient to ICU, placed on DKA protocol - We'll continue insulin drip and monitor blood glucose every hour - We will continue IV fluid hydration with normal saline - Will change to D5 normal saline once blood glucose reaches below 250 - We'll repeat BMP per DKA protocol till anion gap closes - We will replace potassium and magnesium as needed - We'll keep the patient nothing by mouth for now, will place on ADA diet when anion gap closes FINN, due to vasomotor nephropathy -Cannot rule out underlying CKD with diabetic nephropathy -Continue aggressive IV fluid hydration, consult nephrology SIRS with leukocytosis, elevated lactic acid and tachycardia -Negative blood culture and UA unremarkable, chest x-ray with nonspecific bilateral interstitial opacities -Negative for COVID-19 -We will cover with antibiotic antibiotics for community-acquired pneumonia Bilateral pneumonia, CAP -Continue IV Rocephin for now -Negative for COVID-19 type 2 diabetes mellitus, continue insulin drip for now, monitor A1c Diabetic neuropathy -Patient takes gabapentin at home, continue supportive care DVT prophylaxis, Lovenox 11/03: transfer out from ICU Subjective Date of service: 11/03/20 Objective - Constitutional Vitals: Vital Signs - 12hr 11/03/20 11/03/20 11/03/20 03:52 04:00 05:00 Temperature 99.1 F Pulse Rate 123 H 108 H Pulse Rate [ 109 H From Monitor] Respiratory 18 18 Rate Blood Pressure 134/79 144/81 O2 Sat by Pulse 98 97 Oximetry 11/03/20 11/03/20 11/03/20 06:00 07:00 08:00 Temperature 99.3 F Pulse Rate 108 H 106 H 115 H Pulse Rate [ From Monitor] Respiratory 16 16 22 Rate Blood Pressure 130/71 135/70 145/71 O2 Sat by Pulse 97 97 99 Oximetry 11/03/20 11/03/20 11/03/20 09:00 10:00 11:00 Temperature Pulse Rate 113 H 96 H 94 H Pulse Rate [ From Monitor] Respiratory 18 15 15 Rate Blood Pressure 144/79 149/76 142/78 O2 Sat by Pulse 100 96 97 Oximetry 11/03/20 12:00 Temperature Pulse Rate 106 H Pulse Rate [ 105 H From Monitor] Respiratory 18 Rate Blood Pressure 133/64 O2 Sat by Pulse 96 Oximetry - Labs CBC & Chem 7: 11/03/20 10:04 11/04/20 05:35 Labs: Abnormal lab results 11/02/20 11/02/20 11/02/20 Range/Units 15:31 16:45 17:46 WBC (4.5-11.0) K/mm3 Sodium (137-145) mmol/L Chloride (98-107) mmol/L BUN (9-20) mg/dL Creatinine (0.8-1.3) mg/dL Glucose (75-100) mg/dL POC Glucose 248 H 216 H 201 H (70-105) mg/dL Urine Creatinine (0.1-20.0) mg/dL Urine Chloride (110-250) mmolL 11/02/20 11/02/20 11/02/20 Range/Units 18:56 21:00 22:16 WBC (4.5-11.0) K/mm3 Sodium (137-145) mmol/L Chloride (98-107) mmol/L BUN (9-20) mg/dL Creatinine (0.8-1.3) mg/dL Glucose (75-100) mg/dL POC Glucose 133 H 178 H 232 H (70-105) mg/dL Urine Creatinine (0.1-20.0) mg/dL Urine Chloride (110-250) mmolL 11/02/20 11/02/20 11/02/20 Range/Units 23:27 23:41 Unknown WBC (4.5-11.0) K/mm3 Sodium 152 H D (137-145) mmol/L Chloride 113.3 H (98-107) mmol/L BUN 62 H (9-20) mg/dL Creatinine 2.0 H (0.8-1.3) mg/dL Glucose 160 H (75-100) mg/dL POC Glucose 175 H (70-105) mg/dL Urine Creatinine 125.0 H (0.1-20.0) mg/dL Urine Chloride 16.5 L (110-250) mmolL 11/03/20 11/03/20 11/03/20 Range/Units 01:15 01:59 03:39 WBC (4.5-11.0) K/mm3 Sodium (137-145) mmol/L Chloride (98-107) mmol/L BUN (9-20) mg/dL Creatinine (0.8-1.3) mg/dL Glucose (75-100) mg/dL POC Glucose 120 H 160 H 213 H (70-105) mg/dL Urine Creatinine (0.1-20.0) mg/dL Urine Chloride (110-250) mmolL 11/03/20 11/03/20 11/03/20 Range/Units 04:28 05:03 05:27 WBC (4.5-11.0) K/mm3 Sodium 148 H (137-145) mmol/L Chloride 111.5 H (98-107) mmol/L BUN 52 H (9-20) mg/dL Creatinine 1.7 H (0.8-1.3) mg/dL Glucose 204 H (75-100) mg/dL POC Glucose 179 H 181 H (70-105) mg/dL Urine Creatinine (0.1-20.0) mg/dL Urine Chloride (110-250) mmolL 11/03/20 11/03/20 11/03/20 Range/Units 06:22 08:27 10:04 WBC 12.7 H (4.5-11.0) K/mm3 Sodium (137-145) mmol/L Chloride (98-107) mmol/L BUN (9-20) mg/dL Creatinine (0.8-1.3) mg/dL Glucose (75-100) mg/dL POC Glucose 127 H 113 H (70-105) mg/dL Urine Creatinine (0.1-20.0) mg/dL Urine Chloride (110-250) mmolL HEART Score - HEART Score Troponin: Troponin T 0.013 ng/mL (0.00-0.029) 11/02/20 06:50
[2020-11-03] MEDS ORDERED: ACETAMINOPHEN 325 MG TAB PO PRN (20:05)
[2020-11-03] MEDS ORDERED: ENOXAPARIN 40 MG/0.4 ML INJ SUB-Q SCH (22:00)
[2020-11-03] MEDS ORDERED: cefTRIAXone/NS 2 GM/100 ML 2 GM/100 ML BAG IV SCH (22:00)
[2020-11-03] MEDS ORDERED: INSULIN GLARGINE 100 UNITS/ML SUB-Q SCH (22:00)
[2020-11-04 06:40] LABS: BUN/Creatinine Ratio 18; Blood Urea Nitrogen 20 mg/dL (9-20); Calcium 8.4 mg/dL (8.4-10.2); Hemolysis Index 3
[2020-11-04] MEDS: INSULIN REGULAR, HUMAN 100 UNITS/1 ML SUB-Q SCH ×2 (07:30→11:30)
--- NOTE | 2020-11-04 09:09 | Progress Note ---
Assessment and Plan Patient alert, awake. Sitting up in chair. On room air.O2 saturation 96%. No acute respiratory distress. Denies chest pain, shortness of breath or cough. Patient afebrile this morning. Has mild leukocytosis. Chest xray obtained 11/02/20 reported Nonspecific bilateral interstitial opacities could represent edema or other chronic interstitial lung disease. Patient is on Ceftriaxone. Recommend to add zithromax also. Patient has history of smoking 1 pack for 30 years. He says he drinks alcohol. Denies drug abuse. 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 He has five children. No Known drug allergies - Patient Problems (1) Diabetes with ketoacidosis Current Visit: Yes Status: Acute Plan to address problem: Management as per primary care. (2) Acute renal injury Current Visit: Yes Status: Acute Plan to address problem: Management as per nephrology. (3) Metabolic encephalopathy Current Visit: Yes Status: Acute Plan to address problem: Management as per primary care. (4) Opacities of both lungs present on chest x-ray Current Visit: Yes Status: Acute Plan to address problem: Bilateral interstitial opacities could represent edema or other chronic interstitial lung disease. Patient is on Ceftriaxone. Recommend to add zithromax also. Subjective Date of service: 11/04/20 Interval history: Patient alert, awake. Sitting up in chair. On room air.O2 saturation 96%. No acute respiratory distress. Denies chest pain, shortness of breath or cough. Patient afebrile this morning. Has mild leukocytosis. Chest xray obtained 11/02/20 reported Nonspecific bilateral interstitial opacities could represent edema or other chronic interstitial lung disease. Patient is on Ceftriaxone. Recommend to add zithromax also. Patient has history of smoking 1 pack for 30 years. He says he drinks alcohol. Denies drug abuse. 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 He has five child ben. No Known drug allergies Objective Vital Signs - 12hr 11/04/20 06:48 Temperature 98.3 F Pulse Rate 95 H Respiratory 20 Rate Blood Pressure 150/75 O2 Sat by Pulse 96 Oximetry Constitutional: no acute distress, alert, other (Sitting up in chair.) Eyes: non-icteric ENT: oropharynx moist Neck: supple, no JVD Ascultation: Bilateral: diminished breath sounds Cardiovascular: regular rate and rhythm Gastrointestinal: normoactive bowel sounds, soft, non-tender Integumentary: normal Extremities: no cyanosis, no edema Neurologic: non-focal exam, pupils equal and round Psychiatric: depressed CBC and BMP: 11/03/20 10:04 11/04/20 05:35 ABG, PT/INR, D-dimer: PT/INR, D-dimer PT 15.1 Sec. (12.2-14.9) H 11/02/20 06:50 INR 1.21 (0.87-1.13) H 11/02/20 06:50 Abnormal lab findings: Abnormal Labs 11/02/20 11/02/20 11/02/20 05:11 05:21 05:21 WBC 12.9 H Hct 46.7 H MCV 99 H MCHC 30 L RDW 16.1 H Lymph % (Auto) 5.0 L Lymph # (Auto) 0.6 L Seg Neutrophils # 11.7 H PT INR VBG pH Sodium Potassium 6.1 H* Chloride 78.1 L Carbon Dioxide 5 L* BUN 74 H Creatinine 3.8 H Glucose 991 H* POC Glucose > 600 H Lactic Acid Calcium Phosphorus Magnesium Alkaline Phosphatase 139 H Urine Creatinine Urine Chloride 11/02/20 11/02/20 11/02/20 05:21 06:50 06:50 WBC Hct MCV MCHC RDW Lymph % (Auto) Lymph # (Auto) Seg Neutrophils # PT INR VBG pH 7.140 L* Sodium Potassium Chloride 86.5 L Carbon Dioxide 4 L* BUN 74 H Creatinine 3.8 H Glucose 884 H* POC Glucose Lactic Acid Calcium 8.1 L Phosphorus 11.40 H Magnesium 3.30 H Alkaline Phosphatase Urine Creatinine Urine Chloride 11/02/20 11/02/20 11/02/20 06:50 06:50 06:50 WBC Hct MCV MCHC RDW Lymph % (Auto) Lymph # (Auto) Seg Neutrophils # PT 15.1 H INR 1.21 H VBG pH Sodium Potassium Chloride Carbon Dioxide BUN Creatinine Glucose POC Glucose Lactic Acid 3.30 H* Calcium Phosphorus Magnesium 3.30 H Alkaline Phosphatase Urine Creatinine Urine Chloride 11/02/20 11/02/20 11/02/20 08:27 09:29 10:12 WBC Hct MCV MCHC RDW Lymph % (Auto) Lymph # (Auto) Seg Neutrophils # PT INR VBG pH Sodium Potassium Chloride 89.4 L 93.9 L Carbon Dioxide 7 L* 12 L BUN 75 H 79 H Creatinine 3.7 H 3.6 H Glucose 789 H* 634 H* POC Glucose 544 H Lactic Acid Calcium 7.9 L 8.2 L Phosphorus Magnesium Alkaline Phosphatase Urine Creatinine Urine Chloride 11/02/20 11/02/20 11/02/20 10:23 11:54 12:53 WBC Hct MCV MCHC RDW Lymph % (Auto) Lymph # (Auto) Seg Neutrophils # PT INR VBG pH Sodium Potassium Chloride Carbon Dioxide 16 L BUN 78 H Creatinine 3.0 H Glucose 403 H POC Glucose 516 H 436 H Lactic Acid Calcium 8.0 L Phosphorus Magnesium Alkaline Phosphatase Urine Creatinine Urine Chloride 11/02/20 11/02/20 11/02/20 13:01 13:55 14:32 WBC Hct MCV MCHC RDW Lymph % (Auto) Lymph # (Auto) Seg Neutrophils # PT INR VBG pH Sodium Potassium Chloride Carbon Dioxide 18 L BUN 78 H Creatinine 2.9 H Glucose 336 H POC Glucose 364 H 295 H Lactic Acid Calcium 8.1 L Phosphorus Magnesium Alkaline Phosphatase Urine Creatinine Urine Chloride 11/02/20 11/02/20 11/02/20 15:31 16:45 17:46 WBC Hct MCV MCHC RDW Lymph % (Auto) Lymph # (Auto) Seg Neutrophils # PT INR VBG pH Sodium Potassium Chloride Carbon Dioxide BUN Creatinine Glucose POC Glucose 248 H 216 H 201 H Lactic Acid Calcium Phosphorus Magnesium Alkaline Phosphatase Urine Creatinine Urine Chloride 11/02/20 11/02/20 11/02/20 18:56 21:00 22:16 WBC Hct MCV MCHC RDW Lymph % (Auto) Lymph # (Auto) Seg Neutrophils # PT INR VBG pH Sodium Potassium Chloride Carbon Dioxide BUN Creatinine Glucose POC Glucose 133 H 178 H 232 H Lactic Acid Calcium Phosphorus Magnesium Alkaline Phosphatase Urine Creatinine Urine Chloride 11/02/20 11/02/20 11/02/20 23:27 23:41 Unknown WBC Hct MCV MCHC RDW Lymph % (Auto) Lymph # (Auto) Seg Neutrophils # PT INR VBG pH Sodium 152 H D Potassium Chloride 113.3 H Carbon Dioxide BUN 62 H Creatinine 2.0 H Glucose 160 H POC Glucose 175 H Lactic Acid Calcium Phosphorus Magnesium Alkaline Phosphatase Urine Creatinine 125.0 H Urine Chloride 16.5 L 11/03/20 11/03/20 11/03/20 01:15 01:59 03:39 WBC Hct MCV MCHC RDW Lymph % (Auto) Lymph # (Auto) Seg Neutrophils # PT INR VBG pH Sodium Potassium Chloride Carbon Dioxide BUN Creatinine Glucose POC Glucose 120 H 160 H 213 H Lactic Acid Calcium Phosphorus Magnesium Alkaline Phosphatase Urine Creatinine Urine Chloride 11/03/20 11/03/20 11/03/20 04:28 05:03 05:27 WBC Hct MCV MCHC RDW Lymph % (Auto) Lymph # (Auto) Seg Neutrophils # PT INR VBG pH Sodium 148 H Potassium Chloride 111.5 H Carbon Dioxide BUN 52 H Creatinine 1.7 H Glucose 204 H POC Glucose 179 H 181 H Lactic Acid Calcium Phosphorus Magnesium Alkaline Phosphatase Urine Creatinine Urine Chloride 11/03/20 11/03/20 11/03/20 06:22 08:27 10:04 WBC 12.7 H Hct MCV MCHC RDW Lymph % (Auto) Lymph # (Auto) Seg Neutrophils # PT INR VBG pH Sodium Potassium Chloride Carbon Dioxide BUN Creatinine Glucose POC Glucose 127 H 113 H Lactic Acid Calcium Phosphorus Magnesium Alkaline Phosphatase Urine Creatinine Urine Chloride 11/03/20 11/03/20 11/04/20 16:37 22:31 05:35 WBC Hct MCV MCHC RDW Lymph % (Auto) Lymph # (Auto) Seg Neutrophils # PT INR VBG pH Sodium Potassium Chloride Carbon Dioxide BUN Creatinine Glucose 267 H POC Glucose 276 H 224 H Lactic Acid Calcium Phosphorus Magnesium Alkaline Phosphatase Urine Creatinine Urine Chloride Allied health notes reviewed: nursing
--- NOTE | 2020-11-04 09:23 | Discharge Summary ---
Providers - Providers Date of Admission: 11/02/20 08:12 Date of discharge: 11/04/20 Attending physician: LUIS EDUARDO MACKEY 11/02/20 06:25 Consult to Case Management [CONS] Routine Services Needed at Discharge: Home Health Services Notified:: [email or web address] 11/02/20 08:36 Consult to Physician [CONS] Stat Comment: Consulting Provider: ELVIN TAYLOR Physician Instructions: Reason For Exam: DKA, acute renal injury, severe anion gap acidosis 11/03/20 08:42 Consult to Physician [CONS] Routine Comment: Consulting Provider: JACKELIN BERRY Physician Instructions: Reason For Exam: DKA Primary care physician: R PROGRAMMER Hospitalization Condition: Stable Hospital course: Discharge diagnosis: Acute metabolic encephalopathy, due to DKA, resolved DKA with type 2 diabetes mellitus FINN due to vasomotor nephropathy SIRS with leukocytosis, elevated lactic acid and tachycardia Community-acquired pneumonia Diabetes mellitus type 2 Diabetic neuropathy Hypertension, started on Norvasc's Disposition: [id number] HOME [facility] Time spent for discharge: 34 minutes Exam - Constitutional Vitals: Temp Pulse Resp BP Pulse Ox 98.3 F 95 H 20 150/75 96 11/04/20 06:48 11/04/20 06:48 11/04/20 06:48 11/04/20 06:48 11/04/20 06:48 Plan Follow up with: PRIMARY CARE, [Primary Care Provider] - 3-5 Days Prescriptions: Insulin Glargine [Lantus VIAL] 15 units SUB-Q QHS 30 Days amLODIPine 10 mg PO QDAY #60 tablet Insulin Regular, Human [HumuLIN R] 0 units SUB-Q ACHS 30 Days units levoFLOXacin [Levaquin] 750 mg PO QDAY #4 tablet
[2020-11-04] MEDS ORDERED: amLODIPine 10 MG TAB PO SCH (10:00)
[2020-11-04] MEDS ORDERED: AZITHROMYCIN 250 MG TAB PO SCH (10:00)
[2020-11-04 12:19] VITALS: BP 140/73
[2020-11-04] MEDS ORDERED: INSULIN GLARGINE 100 UNITS/ML SUB-Q SCH (22:00)
== END 2020-11-04 18:25 | disposition home health service (06) | DRG 637 ==
LOC: ED 04:41 → CC1 08:12 → 3A 11-03 12:29
PROVIDERS: ADMIT Internal Medicine; ATTEND Internal Medicine
DX: E11.10 Type 2 diabetes mellitus with ketoacidosis without coma (principal); N17.0 Acute kidney failure with tubular necrosis; G93.41 Metabolic encephalopathy; J18.9 Pneumonia, unspecified organism; R65.10 Systemic inflammatory response syndrome (SIRS) of non-infectious origin without acute organ dysfunction; E83.39 Other disorders of phosphorus metabolism; E87.5 Hyperkalemia; Z20.822 Contact with and (suspected) exposure to COVID-19; Z79.899 Other long term (current) drug therapy; Z79.4 Long term (current) use of insulin; E11.40 Type 2 diabetes mellitus with diabetic neuropathy, unspecified
CPT/HCPCS: 36415; 70450; 71045; 80048; 80076; 81001; 82140; 82436; 82550; 82553; 82570; 82805; 82962; 83735; 83880; 84100; 84300; 84484; 85025; 85027; 85610; 85730; 87040; 93005; 96365; 96367; 96372; 96375; G0378; J0692; J0696; J1650; J1815; J2405; J3370; J7030; J7040; U0003